=== PATIENT | female | born 1950 | race Caucasian/White ===

== ENCOUNTER 2020-05-06 12:53 | Outpatient (CLI) | payer MEDICARE, BC, SELFPAY ==
--- NOTE | 2020-05-06 13:04 | XR_ITS ---
WS: [id number] Exam: XR DEXA axial skeleton* [id number] Date/Time of Exam: 05/06/2020 1:04 PM Reason For Exam: OSTEOPOROSIS DEXA BONE DENSITOMETRY Looking for Gamers The L1-L4 bone mineral density measures 1.169 g/cm2. This corresponds to a T score of -0.1 and Z scor e of 1.3. Left femoral neck bone mineral density measures 0.939 g/cm2. This corresponds to T score of -0.5 and Z score of 0.6. Right femoral neck bone mineral density measures 0.991 g/cm2. This corresponds to a T score of -0.1 a nd Z score of 1.0. Mean femoral neck bone mineral density measures 0.965 g/cm2. This corresponds to a T score of -0.3 an d Z score of 0.8. XR/XR DEXA axial skeleton* 00300 IMPRESSION: Bone mineral density lies in the normal range. No osteopenia is observed at th is time. Refer to detailed summary.
== END 2020-05-06 12:54 | disposition home or self-care (01) ==
LOC: RADWPI 13:03
PROVIDERS: PCP Internal Medicine; Visit Provider Internal Medicine
DX: M81.0 Age-related osteoporosis without current pathological fracture (principal)
CPT/HCPCS: 77080

== ENCOUNTER 2024-03-12 12:02 | Outpatient (CLI) | payer MEDICARE, BC, SELFPAY ==
--- NOTE | 2024-03-12 12:07 | MM_ITS ---
WS: [id number] BILATERAL 3D TOMOSYNTHESIS DIGITAL SCREENING MAMMOGRAPHY WITH CAD CLINICAL INFORMATION: SCREENING HISTORY: Screening mammogram. No current complaints. COMPARISON: 2018 TECHNIQUE: Bilateral CC and MLO views. FINDINGS: The breasts are composed of heterogeneous fibroglandular density tissue, which can limit the detectio n of small underlying mass lesions. No suspicious mass, asymmetry, calcifications, or architectural d istortion. No evidence of malignancy. A few incidental punctate calcifications. MM/[place] [address] IMPRESSION: DENSITY:The breasts are heterogeneously dense, which may obscure small masses. BI-RADS: 2 - Benign FOLLOW UP: 1 Year Follow-up Recommend return to annual screening mammography.
== END 2024-03-12 12:03 | disposition home or self-care (01) ==
LOC: RAD 12:04
PROVIDERS: PCP Internal Medicine; Visit Provider Internal Medicine
DX: Z12.31 Encounter for screening mammogram for malignant neoplasm of breast (principal); R92.333 Mammographic heterogeneous density, bilateral breasts
CPT/HCPCS: 77063; 77067

== ENCOUNTER 2025-01-15 14:42 | Emergency (ER) | payer MEDICARE, BC, SELFPAY ==
--- OUTSIDE RECORDS SUMMARY | 2025-01-15 14:46 | XMS_ITS | Continuity of Care Document ---
Author Organization ANURAG Montano [facility] Tamika, LDorie, [facility] ([facility]) Address [address] [place] [address] Care Team Providers Care Senior Buyer Planner Name Role Phone ARTUR ROBERSON Primary Care Provider [phone] Assessment No assessment recorded. Plan of Treatment Reminders Order Date Submit Date Provider Last Modified By Organization Details Last Modified Time Details Appointments Roberson Transfer 2024 01:45P M Tod Bennett MD Not available Not available Not available Lab urinalysi s, dipstick 2024 025 [email or web address] [facility] ([facility]), [address] [place], [address], 01/14/2025 08:51:52 Referral None recorded. Procedures None recorded. Surgeries None recorded. Imaging None recorded. Medication Orders amoxicill in 875 mg-potass ium clavulana te 125 mg tablet 2024 025 [facility], [address], [address], 01/14/2025 08:51:38 tamsulosi n 0.4 mg capsule 2024 025 [facility], [address], [address], 01/14/2025 08:51:37 Patient TargetsNo targets recorded. Patient InstructionsNo instructions recorded. Reason for Referral None Reported. Results Created Date Observation Date Name Description Value Unit Range Abnormal Flag Note LastModifiedBy Organization Detail LastModifiedTime 01/15/2001/14/2025 urina lysis , dipst ick Leukocytes Small Not Available [facility] ([facility]) [address] [place], [address], 01/14/2025 08:33:36 01/15/20 25 01/14/2025 urina lysis , dipst ick Nitrite negati ve Not Available [facility] ([facility]) [address] [place], [address], 01/14/2025 08:33:36 01/15/2001/14/2025 urina lysis , dipst ick Urobilinogen 1 Not Available [facility] ([facility]) [address] [place], [address], 01/14/2025 08:33:36 01/15/20 25 01/14/2025 urina lysis , dipst ick Protein 30 Not Available [facility] ([facility]) [address] [place], [address], 01/14/2025 08:33:36 01/15/20 25 01/14/2025 urina lysis , dipst ick pH 6.0 Not Available [facility] ([facility]) [address] [place], [address], 01/14/2025 08:33:36 01/15/20 25 01/14/2025 urina lysis , dipst ick Blood Small Not Available [facility] ([facility]) [address] [place], [address], 01/14/2025 08:33:36 01/15/20 25 01/14/2025 urina lysis , dipst ick Specific [place] 1.030 Not Available [facility] ( [facility]) [address] [place], [address], 01/14/2025 08:33:36 01/15/20 25 01/14/2025 urina lysis , dipst ick Ketone Trace Not Available [facility] ([facility]) [address] [place], [address], 01/14/2025 08:33:36 01/15/20 25 01/14/2025 urina lysis , dipst ick Bilirubin Negati ve Not Available [facility] ([facility]) [address] [place], [address], 01/14/2025 08:33:36 01/15/2001/14/2025 urina lysis , dipst ick Glucose Negati ve Not Available [facility] ([facility]) [address] [place], [address], 01/14/2025 08:33:36 01/15/2001/14/2025 urina lysis , dipst ick Appearance Slight ly Cloudy Not Available [facility] ([facility]) [address] [place], [address], 01/14/2025 08:33:36 01/15/20 25 01/14/2025 urina lysis , dipst ick Color Yellow Not Available [facility] ([facility]) [address] [place], [address], 01/14/2025 08:33:36 Result Notes None recorded. Problems Name Problem SNOMED Code Status Onset Date Resolution Date Notes Provider Name and Address Organization Details Recorded Time Acute pharyngitis 791162687 Active 2023 Tod Bennett MD [address] [place], [address] , [facility] - [facility], LDorie 10:03:17 Hypothyroid ism 75667008 Active 2023 DIMITRIS malik, [facility], DelilahLKelleCKelle 4 09:23:40 Essential hypertensio n 42524537 Active 2023 DIMITRIS malik, [facility], James 4 09:23:46 History of polyp of colon 160847441 [facility] 10:25:37 Colonoscopy Active 2021 Colonosc opy; 1997-Dr. Ceballos 2003-[facility] 03/02/10 @ [facility] by Dr. Thompson ; 01/20/20 5:40PM by Delmer Dominguez, Office Visit; Promoted ; acuity set as *; Not Available [facility] 3 03:07:31 Cholecystec charlee Active 2021 Cholecys tectomy; 01/20/20 22 5:40PM by Delmer Dominguez, Office Visit; Promoted ; acuity set as *; Not Available [facility] 3 03:07:31 Polyp of colon 86347219 Active 2021 Colon Polyps; 1997 megha diaz; 01/20/20 22 5:40PM by Delmer Dominguez, Office Visit; Promoted ; acuity set as *; Not Available [facility] 3 03:07:31 Hysterectom y Active 2003 Hysterec charlee; Date: 01/20/20 22 5:40PM by Delmer Dominguez, Office Visit; Promoted ; acuity set as *; Not Available [facility] 3 03:07:32 Problem Notes None recorded. Procedures Surgical History Date Name Laterality Status Provider Name and Address Organization Details Recorded Time 05/20/20 Colonoscopy completed WILLIAM ROUSSEAU [facility], James 02/25/2024 10:05:50 [facility]24 13:47:43 [facility] ear [facility] 13:48:06 Imaging Results None recorded. Procedure Notes None recorded. Medical Equipment None Reported. Allergies Allergen ID Allergen Name Allergen Category Reaction Reaction Severity Criticality Documentation Date Start Date Code Code System Note Provider Name and Address Organization Details Recorded Time 04121 Floxin medicatio n Not available Not available Not available 02/03/202312271 8 RxNorm Comme nt: Recor ded 03/15 10:05 AM by There sa Hardwick Offic e Visit ; Promo clark; Signi anjel ce: *; Reaso n: Drug aller gy; ; Not Available [facility] 3 02:27:32 45251 Cipro medicatio n Not available Not available Not available 02/03/202344421 3 RxNorm Comme nt: Recor ded 03/15 10:05 AM by There sa Hardwick Offic e Visit ; Promo clark; Signi anjel ce: *; Reaso n: Drug aller gy; ; Not Available [facility] 3 02:27:32 24686 latex environme nt,medica tion Not available Not available Not available 03/21/2024 24582 91 RxNorm Susie malik [facility], LKelleLDana 4 13:45:18 Medications Name Sig Start Date Stop Date Status Note LastModified by Organization Details LastModified Time levothyro xine 137 mcg tablet TAKE 1 TABLET BY MOUTH ONCE DAILY 07/12 completed Not Available Not Available Not Available propranol ol ER 60 mg capsule,2 4 hr,extend ed release Take 1 capsule by mouth once daily 2024 active Not Available Not Available Not Avai lable tamsulosi n 0.4 mg capsule Take 1 capsule every day by oral route for 15 days. 2024 active Not Available Not Available Not Avai lable levothyro xine 125 mcg tablet Take 1 tablet every day by oral route. active Not Available Not Available No t Available hydrocort isone 2.5 % topical cream MIX EQUAL PARTS HYDROCOR TISONE AND KETOCONA ZOLE AND APPLY TO RASH ON FACE TWICE DAILY 01/14 completed Not Available Not Available Not Available ketoconaz ole 2 % topical cream MIX EQUAL AMOUNTS KETOCONA ZOLE AND HYROCORT ISONE CREAM AND APPLY TO RASH ON FACE TWICE DAILY 01/14 completed Not Available Not Available Not Available levothyro xine 112 mcg tablet TAKE 1 TABLET BY MOUTH ONCE DAILY (REPEAT TSH IN 7 WEEKS) 01/14 completed Not Available Not Available Not Available amoxicill in 875 mg-potass ium clavulana te 125 mg tablet Take 1 tablet every 12 hours by oral route for 7 days. 2024 active Not Available Not Available Not Avai lable Polytrim 4 times per day for 5 days 07/12 completed Recorded 03/15/20 10:24AM by Tod Bennett MD, Office Visit; Refill Quantity : 0; Not Available Not Available Not Available Vitamin C active Not Available Not Nadja ilable Not Available cyanocoba lee (vitamin B-12) 01/14 completed Not Available Not Available Not Available propranol ol daily 07/12 completed 59035; Recorded 06/26/20 9:02AM by Edie Hardwick (Authori zed through Tod Bennett MD), Refill Request; Mail Order Quantity : 7 Capsule; Refill Quantity : 90; Capsule; Not Available Not Available Not Available [facility] Levothyro xine Sodium daily 07/12 completed *dose increase * repeat in 7 weeks. CS/smf; 98464; Recorded 03/28/20 11:59AM by Cleopatra Turpin RN (Authori zed through Artur Roberson DO), Refill Request; Refill Quantity : 90; Capsule; Not Available Not Available Not Available Vitals Date Recorded Body height Body mass index (BMI) Body weight Oxygen saturation Oxygen saturation in Arterial blood by Pulse oximetry Heart rate Respiratory rate Body temperature Systolic And Diastolic Provider Name and Address Organization Details Last Updated DateTime 5 162.56 cm 28.8 kg/m2 04787.5 2 g 97 % 97 % 74 /min 16 /min 98.2 [degF] 130/88 mm[Hg] Tete Fountain [facility], .L.CKelle 08:08:45 Social History Question Answer Notes LastModified by Organizat ion Details LastModified Time Tobacco Smoking Status Never Smoker DIMITRIS PALOMA [facility] 02/25/2024 09:22:06 Are You Blind Or Do You Have Difficulty Seeing? No Information not available 02/25/2024 Are You Deaf Or Do You Have Serious Difficulty Hearing? No Information not available 02/25/2024 What Was The Date Of Your Most Recent Tobacco Screening? 01/14/2025 [email or web address] Information not available 01/14/2025 Has Tobacco Cessation Counseling Been Provided? No Information not available 02/25/2024 Do You Have Difficulty Walking Or Climbing Stairs? No Information not available 02/25/2024 Sex: Unknown Functional Status Question Answer Note LastModified by Organizat ion Details LastModified Time Do you use any illicit or recreational drugs? No [email or web address] Information not available 02/25/2024 Do you or have you ever used any other forms of tobacco or nicotine? No [email or web address] Information not available 02/25/2024 What is your level of alcohol consumption? None [email or web address] Information not available 02/25/2024 Are you able to walk? YESWOREST [email or web address] Information not available 02/25/2024 Do you have difficulty doing errands alone? No [email or web address] Information not available 02/25/2024 Are you able to care for yourself? Yes Information n ot available 02/25/2024 Do you have difficulty dressing or bathing? No [email or web address] Information not available 02/25/2024 Do you or have you ever used any nicotine-free cigarettes, vape, or chewing tobacco? No [email or web address] Information not available 02/25/2024 Mental Status Question Answer Note LastModified by Organization D etails LastModified Time Do you have difficulty concentrating, remembering or making decisions? No [email or web address] Information no t available 02/25/2024 Family History Nothing Reported. Medical History No medical history recorded. Gynecological HistoryNo gynecological history recorded. Obstetrics History GPAL:G 0 P 0 0 0 0 Immunizations Vaccine Type Date Status Note Provider Nam e and Address Organization Details Recorded Time Influenza, MDCK, quadrivalent, PF 7 completed Not Available [facility] 02/03/2023 02:43:29 Influenza, split virus, trivalent, preservative 2 completed Not Available [facility] 02/03/2023 02:43:29 Influenza, split virus, trivalent, preservative 2 completed Not Available [facility] 02/03/2023 02:43:29 COVID-19, mRNA, LNP-S, PF, 100 mcg/0.5mL dose or 50 mcg/0.25mL dose 1 completed Not Available [facility] 01/14/2025 08:04:19 COVID-19, mRNA, LNP-S, PF, 100 mcg/0.5mL dose or 50 mcg/0.25mL dose 1 completed Not Available [facility] 01/14/2025 08:04:19 COVID-19, mRNA, LNP-S, PF, 100 mcg/0.5mL dose or 50 mcg/0.25mL dose 1 completed Not Available [facility] 01/14/2025 08:04:19 Influenza, adjuvanted, quadrivalent, PF 3 completed Not Available [facility] 01/14/2025 08:04:19 COVID-19, mRNA, LNP-S, PF, 50 mcg/0.5 mL 3 completed Not Available [facility] 01/14/2025 08:04:19 Past Encounters Encounter ID Performer Location Encounter Start Date Encounter Closed Date Diagnosis/Indication Diagnosis SNOMED-CT Code Diagnosis ICD10 Code Diagnosis Note [id number] GERARD DA SILVA [facility] ([facility]) [address] [place] [address] 01/14/2025 08:03:47 01/14/2025 09:21:27 Abdominal pain 29048192 R10.9 Dysuria 71013542 R30.0 Patient will increase po intake. Monitor for any further nausea, flank pain that migrates to the front of abdomen. Will call with any new or worsening symptoms. Left flank pain 53301399 9 R10.9 Health Concerns Section Related Observation LastModified by Organization Bryan mejia LastModified Time None Recorded Concern Status LastModified by Organization Details LastModified Time None Recorded Payers Encounter Date Sequence Insurance Name Policy Number Policy Luna Covered Member ID Luna Member ID Guarantor Name 01/14/2025 2 [id number]LE[place] [id number] Bisi [place] [id number] Bisi Mata [place] 01/14/2025 1 [place] Bisi Mata [place] [id number] Bisi Adolfo [place] Notes Date Note Type Note Provider Name and Address Organization Details Recorded Time 01/14/2025 text/html walk in patientpatient is here today for left lower quadrant abdominal pain after having a bowel movement yesterday that never went away. Patient states that she has been constipated recently. Also states that she has possibly had a little pink with wiping with urination during the night. Patient states that she woke at 130 this am with left flank pain, moderate to severe, sharp with some nausea. Denies vomiting but states that she had try heaves. MAHI DOMINGUEZ, [employer] [address] [place], [address], [facility] 01/14/2025 08:51:49 OBGyn Episode No OBEpisode recorded.
--- OUTSIDE RECORDS SUMMARY | 2025-01-15 14:46 | XMS_ITS | Data Portability ---
Author Organization ANURAG Montano [facility], [facility], [facility] Address [address] [facility] [address] [place] [address] Care Team Providers Care Ink Blender Name Role Phone ROBERSON ARTUR Primary Care Provider [phone] Assessment No assessment recorded. Plan of Treatment Reminders Order Date Submit Date Provider Last Modified By Organization Details Last Modified Time Details Appointments Roberson Transfer 2024 01:45P Brenda Bennett MD Not available Not available Not available Lab urinalysi s, dipstick 2024 025 [email or web address] [facility] ([facility]), [address] [place], [address], 01/14/2025 08:51:52 SARS CoV 2 RNA, QL, nasophary nx 2023 024 [email or web address] [facility] ([facility]), [address] [place], [address], 03/21/2024 15:48:14 CMP, serum or plasma 2023 024 [facility], [address], [facility] 1, [place], [address], 02/25/2024 16:29:18 lipid panel, blood 2023 024 [facility], [address] [facility], [facility] 1, [place], [address], 02/25/2024 16:29:21 CBC 2023 024 MESA Cristino [facility], [address] [facility] [address], [address], 02/25/2024 12:44:05 TSH, serum or plasma 2023 024 [facility] ([facility]), [address] [place], [address], 02/25/2024 12:33:14 Referral gastroent erologist referral 2023 024 [email or web address] Not available 02/26/2024 10:22:36 Procedures None recorded. Surgeries None recorded. Imaging XR, kidney + ureter + bladder [address] ([facility]), [address] [place], [address], 02/26/2024 15:56:22 MAMMO, screening , digital, bilateral [address] [facility] Orders, [address] [place], [address], 03/03/2024 15:59:37 Medication Orders amoxicill in 875 mg-potass ium clavulana te 125 mg tablet 2024 025 [facility], [address], [place], [address], 01/14/2025 08:51:38 tamsulosi n 0.4 mg capsule 2024 025 [facility], [address], [place], [address], 01/14/2025 08:51:37 Patient TargetsNo targets recorded. Patient Instructions Encounter Date Encounter Id Patient Instructions Last Modified By Organization Details Last Modified Time 02/25/2024 [id number] gaining weight; had thyroid checked with endocrine other labs today due for colonoscopy with h/o polyps metal detector goes off around bladder; will get xray [email or web address] Not available 02/25/2024 10:01:53 Reason for Referral Medicare Compliance Auditor Referral for Screening for malignant neoplasm of colon Referring Physician: Artur Roberson, Internal Medicine, Encounter Date: 02/25/2024 Results Created Date Observation Date Name Description Value Unit Range Abnormal Flag Note LastModifiedBy Organization Detail LastModifiedTime 02/25/2002/25/2024 CBC WBC 8.7 x10 4.0-10 .5 Not Available [facility] [address] [facility] 1, [place], [address], 02/25/2024 12:44:05 02/25/2002/25/2024 CBC RBC 5.11 x10 3.50-5 .50 Not Available [facility] [address] [facility] 1, [place], [address], 02/25/2024 12:44:05 02/25/20 24 02/25/2024 CBC HGB 15.3 g/dL 12.0-1 6.0 Not Available [facility] [address] [facility] 1, [place], [address], 02/25/2024 12:44:05 02/25/20 24 02/25/2024 CBC HCT 45.1 % 37.0-4 7.0 Not Available [facility] [address] [facility] 1, [place], [address], 02/25/2024 12:44:05 02/25/20 24 02/25/2024 CBC MCV 88.2 fL 80.0-9 9.9 Not Available [facility] [address] [facility] 1, [place], [address], 02/25/2024 12:44:05 02/25/20 24 02/25/2024 CBC MCH 29.9 pg 27.0-3 2.0 Not Available [facility] [address] [facility] 1, [place], [address], 02/25/2024 12:44:05 02/25/20 24 02/25/2024 CBC MCHC 33.9 g/dL 32.0-3 6.0 Not Available [facility] [address] [facility], [place], [address], 02/25/2024 12:44:05 02/25/20 24 02/25/2024 CBC RDW 13.3 % 11.5-1 4.5 Not Available [facility] [address] [facility] 1, [place], [address], 02/25/2024 12:44:05 02/25/20 24 02/25/2024 CBC plt 277.7 x10 140.0- 451.0 Not Available [facility] [address] [facility], [place], [address], 02/25/2024 12:44:05 02/25/20 24 02/25/2024 CBC lymphocytes % 28.3 % 20.0-5 0.0 Not Available [facility] [address] [facility], [place], [address], 02/25/2024 12:44:05 02/25/20 24 02/25/2024 CBC granulcytes % 60.3 % 30.0-7 0.0 Not Available [facility] [address] [facility], [place], [address], 02/25/2024 12:44:05 02/25/20 24 02/25/2024 CBC monocytes % 8.9 % 2.0-16 .0 Not Available [facility] [place] [address] [facility], [place], [address], 02/25/2024 12:44:05 02/25/20 24 02/25/2024 CBC granulcytes# 5.2 x10 Not Nadja ilable [facility] [address] [facility] [address] [address], [place], [address], 02/25/2024 12:44:05 02/25/20 24 02/25/2024 CBC lymphocytes # 2.5 x10 Not Available [facility] [address] [address], [place], [address], 02/25/2024 12:44:05 02/25/20 24 02/25/2024 CBC monocytes # 0.8 x10 Not Avai lable [facility] [address] [address], [place], [address], 02/25/2024 12:44:05 02/25/20 24 02/25/2024 CMP (FEMA LE) glucose 102.0 mg/dL 60.0-9 9.0 high Not Available [facility] [address] [address], [place], [address], 02/25/2024 16:29:18 02/25/20 24 02/25/2024 CMP (FEMA LE) BUN (blood urea nitrogen) 20.0 mg/dL 10.0-2 6.0 Not Available [facility] [address] [address], [place], [address], 02/25/2024 16:29:18 02/25/20 24 02/25/2024 CMP (FEMA LE) creatinine (serum) 0.9 mg/dL 0.4-1. 5 Not Available [facility] [address] [facility] [address] [address], [place], [address], 02/25/2024 16:29:18 02/25/20 24 02/25/2024 CMP (FEMA LE) BUN/creatini ne ratio 23.53 ratio Not Available [facility] [address] [facility] 1, [place], [address], 02/25/2024 16:29:18 02/25/20 24 02/25/2024 CMP (FEMA LE) eGFR calculated 70.1 Not Available [facility] [address] [facility] 1, [place], [address], 02/25/2024 16:29:18 02/25/20 24 02/25/2024 CMP (FEMA LE) total protein 7.7 g/dL 6.0-8. 5 Not Available [facility] [address] [facility] 1, [place], [address], 02/25/2024 16:29:18 02/25/20 24 02/25/2024 CMP (FEMA LE) total bilirubin 0.7 mg/dL 0.2-1. 3 Not Available [facility] [address] [facility] 1, [place], [address], 02/25/2024 16:29:18 02/25/20 24 02/25/2024 CMP (FEMA LE) albumin 4.4 g/dL 3.5-5. 5 Not Available [facility] [address] [facility], [place], [address], 02/25/2024 16:29:18 02/25/20 24 02/25/2024 CMP (FEMA LE) globulin 3.[address] [facility] [address] [facility] 1, [place], [address], 02/25/2024 16:29:18 02/25/20 24 02/25/2024 CMP (FEMA LE) AST (SGOT) 28.0 U/L 0.0-46 .0 Not Available [facility] [address] [facility], [place], [address], 02/25/2024 16:29:18 02/25/20 24 02/25/2024 CMP (FEMA LE) altv (SGPT) 25.0 U/L 13.0-6 9.0 normal Not Available [facility] [address] [facility] 1, [place], [address], 02/25/2024 16:29:18 02/25/20 24 02/25/2024 CMP (FEMA LE) A/G ratio 1.3 ratio Not Available [facility] [address] [facility] 1, [place], [address], 02/25/2024 16:29:18 02/25/20 24 02/25/2024 CMP (FEMA LE) ALP phos 70.0 U/L 30.0-1 40.0 normal Not Available [facility] [address] [address], [place], [address], 02/25/2024 16:29:18 02/25/20 24 02/25/2024 CMP (FEMA LE) calcium 9.9 mg/dL 8.4-10 .5 Not Available [facility] [address] [address], [place], [address], 02/25/2024 16:29:18 02/25/20 24 02/25/2024 CMP (FEMA LE) sodium 141.0 mmol/ L 136.0- 145.0 Not Available [facility] [address] [address], [place], [address], 02/25/2024 16:29:18 02/25/20 24 02/25/2024 CMP (FEMA LE) potassium 4.3 mmol/ L 3.5-5. 1 Not Available [facility] [address] [address], [place], [address], 02/25/2024 16:29:18 02/25/20 24 02/25/2024 CMP (FEMA LE) chloride 108.0 mmol/ L 98.0-1 10.0 normal Not Available [facility] [address] [facility] 1, [place], [address], 02/25/2024 16:29:18 02/25/20 24 02/25/2024 CMP (FEMA LE) C02 28.0 mmol/ L 22.0-3 1.0 Not Available [facility] [address] [facility] 1, [place], [address], 02/25/2024 16:29:18 02/25/20 24 02/25/2024 CMP (FEMA LE) anion gap 5.[address] [facility] [address] [facility] 1, [place], [address], 02/25/2024 16:29:18 02/25/20 24 02/25/2024 CMP (FEMA LE) osmolality 293.8 calc Not Available [facility] [address] [facility] 1, [place], [address], 02/25/2024 16:29:18 02/25/20 24 02/25/2024 LIPID PROFI LE (FEMA LE) cholesterol 244.0 mg/dL 0.0-20 0.0 high Not Available [facility] [address] [address], [place], [address], 02/25/2024 16:29:20 02/25/20 24 02/25/2024 LIPID PROFI LE (FEMA LE) trig 212.0 mg/dL 0.0-15 0.0 high Not Available [facility] [address] [address], [place], [address], 02/25/2024 16:29:20 02/25/20 24 02/25/2024 LIPID PROFI LE (FEMA LE) HDL - direct 41.0 mg/dL >40.0 Not Available [facility] [address] [address], [place], [address], 02/25/2024 16:29:20 02/25/20 24 02/25/2024 LIPID PROFI LE (FEMA LE) VLDL - direct 42.4 mg/dL Not Available [facility] [address] [facility] 1, [place], [address], 02/25/2024 16:29:20 02/25/20 24 02/25/2024 LIPID PROFI LE (FEMA LE) LDL - direct 160.6 mg/dL 0.0-13 0.0 high Not Available [facility] [address] [facility] 1, [place], [address], 02/25/2024 16:29:20 02/25/20 24 02/25/2024 TSH, serum or plasm a TSH 0.22 uIU/m L 0.49-3 .82 low Not Available [facility] ([facility]) [address] [place], [address], 02/25/2024 09:52:12 03/21/20 24 03/21/2024 SARS CoV 2 RNA, QL, nasop haryn x COVID positi ve Not Available [facility] ([facility]) [address] [place], [address], 03/21/2024 13:55:14 01/15/20 25 01/14/2025 urina lysis , dipst ick Leukocytes Small Not Available [facility] ([facility]) [address] [place], [address], 01/14/2025 08:33:36 01/15/20 25 01/14/2025 urina lysis , dipst ick Nitrite negati ve Not Available [facility] ([facility]) [address] [place], [address], 01/14/2025 08:33:36 01/15/20 25 01/14/2025 urina lysis , dipst ick Urobilinogen 1 Not Available [facility] ([facility]) [address] [place], [address], 01/14/2025 08:33:36 01/15/20 25 01/14/2025 urina lysis , dipst ick Protein 30 Not Available [facility] ([facility]) [address] [place], [address], 01/14/2025 08:33:36 01/15/20 25 01/14/2025 urina lysis , dipst ick pH 6.0 Not Available [facility] ([facility]) [address] [place], [address], 01/14/2025 08:33:36 01/15/2001/14/2025 urina lysis , dipst ick Blood Small Not Available [facility] ([facility]) [address] [place], [address], 01/14/2025 08:33:36 01/15/2001/14/2025 urina lysis , dipst ick Specific [place] 1.030 Not Available [facility] ( [facility]) [address] [place], [address], 01/14/2025 08:33:36 01/15/2001/14/2025 urina lysis , dipst ick Ketone Trace Not Available [facility] ([facility]) [address] [place], [address], 01/14/2025 08:33:36 01/15/2001/14/2025 urina lysis , dipst ick Bilirubin Negati ve Not Available [facility] ([facility]) [address] [place], [address], 01/14/2025 08:33:36 01/15/20 25 01/14/2025 urina lysis , dipst ick Glucose Negati ve Not Available [facility] ([facility]) [address] [place], [address], 01/14/2025 08:33:36 01/15/20 25 01/14/2025 urina lysis , dipst ick Appearance Slight ly Cloudy Not Available [facility] ([facility]) [address] [place], [address], 01/14/2025 08:33:36 01/15/20 25 01/14/2025 urina lysis , dipst ick Color Yellow Not Available [facility] ([facility]) [address] [place], [address], 01/14/2025 08:33:36 02/27/20 24 02/25/2024 XR, kidne y + urete r + bladd er No observ ation record ed. [email or web address] [facility] [address] [place], [address], 03/13/2024 12:21:54 03/12/20 24 03/12/2024 MAMMO , scree dino, digit al, bilat eral No observ ation record ed. [address] [place], [address], 03/13/2024 12:21:43 Result Notes None recorded. Problems Name Problem SNOMED Code Status Onset Date Resolution Date Notes Provider Name and Address Organization Details Recorded Time Acute pharyngitis 041125727 Active 2023 Tod Bennett MD [address] [place] [address], [address] , [facility], James 10:03:17 Hypothyroid ism 12426260 Active 2023 DIMITRIS malik, [facility], James 4 09:23:40 Essential hypertensio n 52751772 Active 2023 DIMITRIS malik, [facility], James 4 09:23:46 History of polyp of colon 071951151 Active 2023 [facility] [place] 4 10:25:37 Colonoscopy Active 2021 Colonosc opy; 1997-Dr. Ceballos 2003-[facility] 03/02/10 @ [facility] by Dr. Thompson ; 01/20/20 5:40PM by Delmer Dominguez, Office Visit; Promoted ; acuity set as *; Not Available [facility] 3 03:07:31 Cholecystec charlee Active 2021 Cholecys tectomy; 01/20/20 22 5:40PM by Delmer Dominguez, Office Visit; Promoted ; acuity set as *; Not Available [facility] 3 03:07:31 Polyp of colon 22585866 Active 2021 Colon Polyps; 1997 megha diaz; 01/20/20 22 5:40PM by Delmer Dominguez, Office Visit; Promoted ; acuity set as *; Not Available [facility] 3 03:07:31 Hysterectom y Active 2003 Hysterec charlee; Date: 01/20/20 22 5:40PM by Delmer Dominguez, Office Visit; Promoted ; acuity set as *; Not Available [facility] 3 03:07:32 Problem Notes None recorded. Procedures Surgical History Date Name Laterality Status Provider Name and Address Organization Details Recorded Time 05/20/20 Colonoscopy completed WILLIAM ROSUSEAU [facility], [place] 02/25/2024 10:05:50 Hysterectomy [facility] 03/21/2024 13:47:43 procedure on ear completed [facility] 03/21/2024 13:48:06 Imaging Results None recorded. Procedure Notes None recorded. Medical Equipment None Reported. Allergies Allergen ID Allergen Name Allergen Category Reaction Reaction Severity Criticality Documentation Date Start Date Code Code System Note Provider Name and Address Organization Details Recorded Time 04230 Floxin medicatio n Not available Not available Not available 02/03/202343271 8 RxNorm Comme nt: Recor ded 03/15 10:05 AM by There sa Hardwick , Offic e Visit ; Promo clark; Maureen hobbs ce: *; Reaso n: Drug aller gy; ; Not Available [facility] 3 02:27:32 58448 Cipro medicatio n Not available Not available Not available 02/03/202312555 3 RxNorm Comme nt: Recor ded 03/15 10:05 AM by There sa Hradwick Offic e Visit ; Promo clark; Maureen hobbs ce: *; Reaso n: Drug aller gy; ; Not Available [facility] 3 02:27:32 42993 latex environme nt,medica tion Not available Not available Not available 03/21/2024 47396 91 RxNorm Susie malik [facility], [facility] 4 13:45:18 Medications Name Sig Start Date [...] Not Available propranol ol daily 07/12 completed 33189; Recorded 06/26/20 9:02AM by Edie Hardwick (Authori kated through Tod Bennett MD), Refill Request; Mail Order Quantity : 7 Capsule; Refill Quantity : 90; Capsule; Not Available Not Available Not Available [facility] Levothyro xine Sodium daily 07/12 completed *dose increase * repeat in 7 weeks. CS/smf; 10597; Recorded 03/28/20 11:59AM by Cleopatra Turpin RN (Authori joanna through Artur Roberson DO), Refill Request; Refill Quantity : 90; Capsule; Not Available Not Available Not Available Vitals Date Recorded Body weight Body mass index (BMI) Body height Body temperature Heart rate Oxygen saturation Oxygen saturation in Arterial blood by Pulse oximetry Respiratory rate Systolic And Diastolic Provider Name and Address Organization Details Last Updated DateTime 4 80867.1 g 29.4 kg/m2 162.56 cm 98.2 [degF] 69 /min 95 % 95 % 20 /min 128/76 mm[Hg] Pretty Alberto [facility], .[facility] 4 16:55:26 Date Recorded Body height Body mass index (BMI) Body weight Oxygen saturation Oxygen saturation in Arterial blood by Pulse oximetry Heart rate Respiratory rate Body temperature Systolic And Diastolic Provider Name and Address Organization Details Last Updated DateTime 5 162.56 cm 28.8 kg/m2 36222.5 2 g 97 % 97 % 74 /min 16 /min 98.2 [degF] 130/88 mm[Hg] Tete Fountain [facility] 5 08:08:45 Date Recorded Body height Body mass index (BMI) Body weight Respiratory rate Heart rate Oxygen saturation Oxygen saturation in Arterial blood by Pulse oximetry Systolic And Diastolic Provider Name and Address Organization Details Last Updated DateTime 4 162.56 cm 28.8 kg/m2 03563.5 2 g 16 /min 68 /min 91 % 91 % 138/80 mm[Hg] DIMITRIS TURPIN [facility] 4 09:20:25 Date Recorded Body height Body mass index (BMI) Body weight Oxygen saturation Oxygen saturation in Arterial blood by Pulse oximetry Heart rate Respiratory rate Body temperature Systolic And Diastolic Provider Name and Address Organization Details Last Updated DateTime 4 162.56 cm 28.6 kg/m2 94937.2 1 g 96 % 96 % 71 /min 18 /min 98.4 [degF] 112/74 mm[Hg] Susie Laureano [facility] 4 13:44:26 Social History Question Answer Notes LastModified by Organizat ion Details LastModified Time Tobacco Smoking Status Never Smoker DIMITRIS TURPIN [facility] 02/25/2024 09:22:06 Are You Blind Or Do You Have Difficulty Seeing? No [email or web address] Information not available 02/25/2024 Are You Deaf Or Do You Have Serious Difficulty Hearing? No Information not available 02/25/2024 What Was The Date Of Your Most Recent Tobacco Screening? 01/14/2025 [email or web address] Information not available 01/14/2025 Has Tobacco Cessation Counseling Been Provided? No [email or web address] Information not available 02/25/2024 Do You Have Difficulty Walking Or Climbing Stairs? No [email or web address] Information not available 02/25/2024 Sex: Unknown Functional Status Question Answer Note LastModified by Organizat ion Details LastModified Time Do you use any illicit or recreational drugs? No [email or web address] Information not available 02/25/2024 Do you or have you ever used any other forms of tobacco or nicotine? No [email or web address] Information not available 02/25/2024 What is your level of alcohol consumption? None [email or web address] Information not available 02/25/2024 Are you able to walk? YESWOREST [email or web address] Information not available 02/25/2024 Do you have difficulty doing errands alone? No [email or web address] Information not available 02/25/2024 Are you able to care for yourself? Yes [email or web address] Information n ot available 02/25/2024 Do you have difficulty dressing or bathing? No [email or web address] Information not available 02/25/2024 Do you or have you ever used any nicotine-free cigarettes, vape, or chewing tobacco? No Information not available 02/25/2024 Mental Status Question Answer Note LastModified by Organization D etails LastModified Time Do you have difficulty concentrating, remembering or making decisions? No [email or web address] Information no t available 02/25/2024 Family History Nothing Reported. Medical History No medical history recorded. Gynecological HistoryNo gynecological history recorded. Obstetrics History GPAL:G 0 P 0 0 0 0 Immunizations Vaccine Type Date Status Note Provider Nam e and Address Organization Details Recorded Time Influenza, MDCK, quadrivalent, PF 7 completed Not Available [facility] 02/03/2023 02:43:29 Influenza, split virus, trivalent, preservative 2 completed Not Available [facility] 02/03/2023 02:43:29 Influenza, split virus, trivalent, preservative 2 completed Not Available [facility] 02/03/2023 02:43:29 COVID-19, mRNA, LNP-S, PF, 100 mcg/0.5mL dose or 50 mcg/0.25mL dose 1 completed Not Available [facility] 01/14/2025 08:04:19 COVID-19, mRNA, LNP-S, PF, 100 mcg/0.5mL dose or 50 mcg/0.25mL dose 1 completed Not Available [facility] 01/14/2025 08:04:19 COVID-19, mRNA, LNP-S, PF, 100 mcg/0.5mL dose or 50 mcg/0.25mL dose 1 completed Not Available [facility] 01/14/2025 08:04:19 Influenza, adjuvanted, quadrivalent, PF 3 completed Not Available [facility] 01/14/2025 08:04:19 COVID-19, mRNA, LNP-S, PF, 50 mcg/0.5 mL 3 completed Not Available [facility] 01/14/2025 08:04:19 Past Encounters Encounter ID Performer Location Encounter Start Date Encounter Closed Date Diagnosis/Indication Diagnosis SNOMED-CT Code Diagnosis ICD10 Code Diagnosis Note [id number] Tod Bennett MD [facility] ([facility]) [address] [place] [phone] 07/12/2023 16:27:32 07/14/2023 21:48:45 Acute pharyngitis 471536409 J02.9 Likely viral discussed the possibilit y of COVID and the patient states that she will do a home test. Would like to start Paxlovid if she was positive so she will call the clinic with results. Chan continue supportive care include plenty of fluids and over-the-c ounter medication to help with symptoms. Follow-up if symptoms do not improve over the next 7 to 10 days. [id number] Artur Roberson DO [facility] ([facility]) [address] [place] [phone] 02/25/2024 09:11:03 02/25/2024 10:30:32 Adult health examination 279637779 Z00.00 Hypothyroidism 63747926 E03.9 Essential hypertension 14845752 I10 Screening for malignant neoplasm of colon 020166562 Z12.11 Screening for malignant neoplasm of breast 344237558 Z12.39 Abdominal pain 61023255 R10.9 [id number] GERARD ZELAYA [facility] ([facility]) [address] [place] [id number] 03/21/2024 13:34:00 03/21/2024 14:21:22 Cough 72494671 R05.9 COVID-19 231192153 U07.1 Pt is covid positive here in the office today.I counseled the patient on diagnosis, treatment options, medication s, and expectatio ns. All questions were addressed. Neela mossPt is to stay home until no fever for 24 hours and then mask in public for an additional 5 days.They were instructed to call the office or come in for Follow Up with any questions, concerns, or worsening problems. [id number] GERARD DA SILVA [facility] ([facility]) [address] [place] [address] 01/14/2025 08:03:47 01/14/2025 09:21:27 Abdominal pain [id number] R10.9 Dysuria [id number] R30.0 Patient will increase po intake. Monitor for any further nausea, flank pain that migrates to the front of abdomen. Will call with any new or worsening symptoms. Left flank pain [id number] R10.9 Health Concerns Section Related Observation LastModified by Organization Detai ls LastModified Time None Recorded Concern Status LastModified by Organization Details LastModified Time None Recorded Advance Directives Directive None Recorded Payers Insurance Date Sequence Insurance Name Policy Number Policy Luna Covered Member ID Luna Member ID Guarantor Name 01/14/2025 2 [place]ARE [place]) [id number] Bisi Adolfo Steuben [id number] Bisi Adolfo Steuben 01/14/2025 1 [place] Bsii Adolfo Steuben [id number] Bisi Adolfo Steuben 01/14/2025 [place] - [facility] (MEDICARE) Bisi D Dejan [id number] Bisi Adolfo Steuben Notes Date Note Type Note Provider Name and Address Organization Details Recorded Time 07/12/2023 text/html Sore ThroatRepor clark bypatient.Location:mid line Onset/Timing:date of onset 07/11/23 Duration:started 1 day(s) ago Quality:pressure Severity:worsening Context:no recent travel; no tick/insect bites; no one else with similar symptoms; allergies Associated Symptoms:no cough; no nausea; no vomiting;fever;swollen glands Tod Bennett MD [address] [place], [address], [facility], Kathy. 07/13/2023 10:04:01 02/25/2024 text/html Annual WellnessReported bypatient.Diet and Nutrition:healthy diet Fracture Risk:no history of fractures; no recent explained fracture Physical Activity:does not exercise on a regular basis Additional Lifestyle Factors:no tobacco use; no alcohol intake Depression Risk:never feels sad, empty, or tearful Artur Roberson DO [address] [place] [address], [phone], [facility], Kathy. 02/25/2024 10:02:06 03/21/2024 text/html Upper Respirator y SymptomsReported bypatient.Location:a d; nasal Quality:hacking cough Associated Symptoms:fatigue;fever ;sore throat;headache;chills walk in patientPatient reports starting to have sinus drainage 4 days ago. with a cough that worsens at night, fatigue, abdi, and sore throat. is drinking fluids well. decreased appetite. KAITLYNN CHEN, DERRICK FOLLOWER [address] [place] [address], [phone], [facility], LKelleLCornelius. 03/22/2024 10:35:36 01/14/2025 text/html walk in patientp atient is here today for left lower quadrant [...] that she had try heaves. MAHI DOMINGUEZ, [facility] [place], [address], [facility], Kathy. 01/14/2025 08:51:49 OBGyn Episode No OBEpisode recorded.
--- OUTSIDE RECORDS SUMMARY | 2025-01-15 14:46 | XMS_ITS | Clinical Summary ---
Author Organization [facility] Address [address] [facility] Attn: [place] [address] Care Team Providers Care Urologist Md Name Role Phone Licha Joe MD, David Butler Primary Care Provider Allergies Active Allergy Reactions Criticality Noted Date Comments Ofloxacin Unknown 03/27/2022 Protein C Concentrate, Human Anxiety Low 018 Medications levothyroxine 125 mcg tablet Take 125 mcg by mouth daily in the morning. Active propranoloL (INDERAL) 60 mg Tablet Take 60 mg by mouth every 8 hours. Active prednisoLONE acetate (PRED FORTE) 1 % suspension Administer 1 Drop in right eye 3 times daily. 15 mL 2 2 Active polymyxin B sulf-trimethopr im (POLYTRIM) 10,000 unit- 1 mg/mL solution Administer 1 Drop in right eye 3 times daily. 10 mL 1 2 Active levothyroxine 88 mcg tablet 8 Active olopatadine (PATANOL) 0.1 % solution 8 Active propranoloL (INDERAL LA) 60 mg Long Acting 24 hour capsule 8 Active Active Problems Problem Noted Date Diagnosed Date Hypothyroidism 03/27/2022 HTN (hypertension), benign 03/27/2022 Symptomatic posterior vitreous detachment of lef t eye 12/14/2017 Combined form of senile cataract of both eyes Social History Tobacco Use Types Packs/Day Years Used Date Smoking Tobacco: Never Smokeless Tobacco: Never Alcohol Use Standard Drinks/Week Comments No 0 (1 standard drink = 0.6 oz pur e alcohol) Comments Unknown Sex and Gender Information Value Date Recorded Sex Assigned at Not on file 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 Gender Identity Not on file Sexual Orientation Not on file Last Filed Vital Signs Vital Sign Reading Time Taken Comments Blood Pressure 139/79 12/14/2017 1:40 PM CDT Pulse - - Temperature - - Respiratory Rate - - Oxygen Saturation - - Inhaled Oxygen Concentration - - Weight 64.4 kg (142 lb) 12/14/2017 1:40 PM CDT Height 162.6 cm (5' 4 ) 12/14/2017 1:40 PM CDT Body Mass Index 24.37 12/14/2017 1:40 PM CDT Plan of Treatment Health Maintenance Due Date Last Done Comments DTAP/TDAP/TD VACCINES (1 - Tdap) 1971 BREAST CANCER SCREENING 1992 COLORECTAL SCREENING 1997 Colorectal Cancer Screening 1997 FIT-DNA Q 3 years 1997 FIT/FOBT Q 1 year 1997 Flex Sig/CT Colonography Q 5 years 1997 PNEUMOCOCCAL VACCINE 50+ YEARS (1 of 1 - PCV) 07/09/19 03 ZOSTER VACCINE (1 of 2) 2002 OSTEOPOROSIS SCREENING 2017 01/16/2007 INFLUENZA VACCINE (#1) 2025 RSV VACCINE (60+ or ) (1 - 1-dose 75+ series) 2027 Insurance [facility] SUPP MEDICARE PART A AND B Care Teams Urologist Md Relationship Specialty Start Date End Date David Hurt Jr., MD [address] [id number] PCP - General 01/04/04
[2025-01-15 14:48] VITALS: BP 137/80; PULSE 76; RESP 18; TEMP 36.6; O2SAT 97; BMI 28.6
[2025-01-15 15:34] LABS: Glucose Urine UA Negative (Normal); Nitrate Urine Negative (Negative); Specific Gravity, Urine 1.026 (1.005-1.030)
[2025-01-15 15:39] LABS: Add Urine Microscopic? YES
--- NOTE | 2025-01-15 16:16 | CTR_ITS ---
PROCEDURE INFORMATION: Exam: CT Abdomen And Pelvis Without Contrast Exam date and time: 01/15/2025 4:59 PM Age: 74 years old Clinical indication: Abdominal pain; Flank; Left; Prior surgery; Surgery date: 6+ months; Surgery type: Gb, hysterectomy; Additional info: Flank pain TECHNIQUE: Imaging protocol: Computed tomography of the abdomen and pelvis without contrast. Radiation optimization: All CT scans at this facility use at least one of these dose optimization techniques: automated exposure control; mA and/or kV adjustment per patient size (includes targeted exams where dose is matched to clinical indication); or iterative reconstruction. COMPARISON: CR XR KUB [id number] 02/25/2024 9:34 AM RADIATION DOSE METRICS: Total DLP (mGy-cm): 651.8 FINDINGS: Lungs: Mild basilar atelectasis and/or scarring. Heart: Heart size is within normal limits. There is no pericardial effusion or pericardial thickening. Liver: There is diffuse decreased attenuation of the hepatic parenchyma consistent with fatty infiltration. The liver is otherwise normal. There are no hepatic masses identified. Gallbladder and biliary ducts: The gallbladder is surgically absent. There is no ductal dilatation. Pancreas: The pancreas is normal. Spleen: The spleen is normal. Adrenal glands: The adrenal glands are normal. Kidneys and ureters: No renal calcifications. No hydronephrosis on the right. 8 mm proximal left ureteral calcification causing moderate left hydroureteronephrosis and perinephric changes. Multiple bilateral renal lesions not well assessed on noncontrast imaging. Stomach and bowel: Moderate colonic diverticulosis without diverticulitis. There is no large or small bowel obstruction. There is no evidence of bowel wall thickening. Appendix: A normal appendix is identified. Intraperitoneal space: No inflammatory changes are identified. There is no free fluid or fluid collection seen. There is no pneumoperitoneum. Vasculature: Atherosclerotic calcifications of the aorta are present. No aneurysm is identified. Lymph nodes: No enlarged lymph nodes are identified. Urinary bladder: The bladder is unremarkable. Reproductive: The uterus is absent. Bones/joints: No acute osseous abnormalities are seen. Soft tissues: Tiny periumbilical hernia containing only fat. CT/CT abdomen pelvis wo con [id number] IMPRESSION: 1. 8 mm proximal left ureteral calcification causing moderate left hydroureteronephrosis and perinephric changes. 2. Other nonemergent findings above. COMMENTS: Consistent with the [place] [employer]'s Incidental Findings Committee white paper (J Am Negrita Radiol 2018): Any incidental renal lesion less than 1 cm or classified as too small to characterize, or any incidental cystic renal lesion characterized as simple-appearing, is likely benign. No follow-up imaging is recommended for these lesions per consensus recommendations based on imaging criteria.
--- NOTE | 2025-01-15 16:27 | W.ED.BACK ---
HPI - Back Pain/Injury General: Chief Complaint: Back Pain/Injury Stated Complaint: low back pain/kidney pain Time Seen by Provider: 01/15/25 16:15 History of Present Illness: Patient is a 74-year-old female that reports to ED with complaints of flank pain, dysuria symptoms. This is occurred for the last 2 days. She has some nausea, and emesis yesterday, however just nausea today. No history of urolithiasis/renal colic. Family history of renal colic. No new sexual partners. Associated symptoms: Reports abdominal pain, nausea and vomiting; Deny chills or fever(s) Related Data Previous Rx's ?Medication ?Instructions ?Recorded cefdinir 300 mg capsule 300 mg PO BID 10 days #20 caps 01/15/25 cephalexin 500 mg capsule 500 mg PO BID 10 days #20 caps 01/15/25 hydrocodone 5 mg-acetaminophen 325 1 tab PO Q6H PRN pain #20 tabs 01/15/25 mg tablet ondansetron 4 mg disintegrating 4 mg PO Q8H PRN nausea and 01/15/25 tablet vomiting #10 tabs ondansetron 4 mg disintegrating 4 mg PO Q8H PRN nausea and 01/15/25 tablet vomiting 4 days #14 tabs tamsulosin 0.4 mg capsule (Flomax) 0.4 mg PO DAILY #30 caps 01/15/25 Allergies Allergy/AdvReac Type Severity Reaction Status Date / Time ciprofloxacin (From Cipro) Allergy Unknown Verified 01/15/25 17:05 latex Allergy Unknown Verified 01/15/25 17:05 Review of Systems Const: Denies: fever(s), chills or change in weight ENMT: Denies: throat pain or nasal congestion Card: Denies: chest pain or palpitations Resp: Denies: dyspnea or productive cough GI: Reports: abdominal pain, nausea and vomiting; Denies: change in stool character : Denies: flank pain or difficulty voiding Musc: Denies: neck pain or back pain Skin/Breast: Denies: rash or pruritus Neuro: Denies: headache(s) or numbness in extremities Endo: Denies: polyuria or polydipsia Physical Exam Const: COMMON NORMALS: no acute distress, average body habitus and patient oriented x3 HENMT: COMMON NORMALS: normocephalic and atraumatic HEAD & SCALP: normocephalic and atraumatic Lymph: LYMPHATIC: no lymphadenopathy noted Resp: COMMON NORMALS: normal respiratory effort and No retractions Cardio: COMMON NORMALS: regular rate and regular rhythm RATE: regular rate RHYTHM: regular rhythm GI: AUSCULTATION: Yes normoactive bowel sounds PALPATION: Yes Tenderness to palpation present (GI) : BLADDER/KIDNEY EXAM: Yes CVA tenderness on the left Back/Pelvis: GENERAL BACK: Yes CVA tenderness Extremity: COMMON NORMALS: normal to inspection, full ROM and capillary refill normal Neuro: COMMON NORMALS: patient oriented x3 Psych: COMMON NORMALS: mental status grossly normal and Normal thought process present THOUGHT PROCESS: Normal thought process present Skin: COMMON NORMALS: no rashes or lesions noted GENERAL SKIN EXAM: no rashes or lesions noted Course Reevaluation(s): Reevaluation #1: Patient improved after Toradol Consultations: Consultation #1: Dr. Mendes d/w Dr. Delbert Martinez in [place], his STYRENE DEHYDRATION REACTOR OPERATOR will see tomorrow in clinic to set up possible lithotripsy. Vital Signs: Vital signs: Vital Signs Temperature 97.9 F 01/15/25 14:48 Pulse Rate 68 01/15/25 17:08 Respiratory Rate 18 01/15/25 14:48 Blood Pressure 157/78 01/15/25 17:08 Pulse Oximetry 95 01/15/25 17:08 Oxygen Delivery Me thod Room Air 01/15/25 17:08 MDM - Back Pain/Injury Medical Decision Making Patient is 74-year-old female treated for UTI yesterday by primary care, on unknown antibiotic, presents with ongoing left flank pain, nausea, with nausea and vomiting yesterday. She has an 8 mm stone with moderate hydronephrosis and notable cystic changes that can be checked on later time, considered incidental. Patient be treated for urolithiasis, and appropriate antibiotic coverage. Discussed the case with Delbert Quintana, his STYRENE DEHYDRATION REACTOR OPERATOR will discuss/see patient tomorrow, and set up for next week. Pain coverage/antibiotics given to patient. Medical Records I reviewed the patient's medical records. Labs I reviewed the patient's lab results. 01/15/25 16:45 01/15/25 16:45 Radiology Impressions Abdomen/Pelvis CT 01/15/25 16:16 IMPRESSION: 1. 8 mm proximal left ureteral calcification causing moderate left hydroureteronephrosis and perinephric changes. 2. Other nonemergent findings above. COMMENTS: Consistent with the [place] [employer]'s Incidental Findings Committee white paper (J Am Negrita Radiol 2018): Any incidental renal lesion less than 1 cm or classified as too small to characterize, or any incidental cystic renal lesion characterized as simple-appearing, is likely benign. No follow-up imaging is recommended for these lesions per consensus recommendations based on imaging criteria. Laboratory Results WBC 17.59 10^3/uL (3.29-11.43) H 01/15/25 16:45 RBC 4.81 10^6/uL (3.85-5.65) 01/15/25 16:45 Hgb 14.00 g/dL (11.27-16.99) 01/15/25 16:45 Hct 43.8 % (36-47) 01/15/25 16:45 MCV 91.1 fl (85-98) 01/15/25 16:45 MCH 29.1 pg (27-33) 01/15/25 16:45 MCHC 32.0 g/dL (30-55) 01/15/25 16:45 RDW 12.2 % (12.1-15.1) 01/15/25 16:45 Plt Count 228 10^3/cmm (157-399) 01/15/25 16:45 MPV 9.8 fL (7.4-10.4) 01/15/25 16:45 Neut % (Auto) 82.7 % 01/15/25 16:45 Lymph % (Auto) 8.6 % 01/15/25 16:45 Hood % (Auto) 7.4 % 01/15/25 16:45 Eos % (Auto) 0.1 % 01/15/25 16:45 Baso % (Auto) 0.3 % 01/15/25 16:45 Neut # (Auto) 14.57 10^3/uL (1.8-7.7) H 01/15/25 16:45 Lymph # (Auto) 1.5 10^3/uL (0.8-4.8) 01/15/25 16:45 Hood # (Auto) 1.3 10^3/uL (0.2-0.9) H 01/15/25 16:45 Eos # (Auto) 0.0 10^3/uL (0.0-0.8) 01/15/25 16:45 Baso # (Auto) 0.1 10^3/uL (0.0-0.1) 01/15/25 16:45 Nucleated RBC % (auto) 0 % 01/15/25 16:45 Nucleated RBCs # 0.0 /100WBC 01/15/25 16:45 Sodium 136 mmol/L (136-145) 01/15/25 16:45 Potassium 4.5 mmol/L (3.5-5.1) 01/15/25 16:45 Chloride 100 mmol/L (98-107) 01/15/25 16:45 Carbon Dioxide 20 mmol/L (22-29) L 01/15/25 16:45 Anion Gap 20.5 (5-19) H 01/15/25 16:45 BUN 23 mg/dL (8-23) 01/15/25 16:45 Creatinine 1.2 mg/dL (0.5-0.9) H 01/15/25 16:45 GFR Calculation Not Reportable 01/15/25 16:45 Glucose 111 mg/dL (65-115) 01/15/25 16:45 Calculated Osmolality 286 mOsm/kg (285-295) 01/15/25 16:45 Calcium 9.3 mg/dL (8.5-10.5) 01/15/25 16:45 Total Bilirubin 1.0 mg/dL (0.15-1.2) 01/15/25 16:45 AST 20 U/L (0-32) 01/15/25 16:45 ALT 15 U/L (0-33) 01/15/25 16:45 Alkaline Phosphatase 68 U/L (35-105) 01/15/25 16:45 Total Protein 7.3 g/dL (6.6-8.7) 01/15/25 16:45 Albumin 3.9 g/dL (3.5-5.2) 01/15/25 16:45 Globulin 3.4 g/dL (1.3-4.6) 01/15/25 16:45 Urine Color Yellow (Yellow) 01/15/25 15:17 Urine Appearance Cloudy (CLEAR) A 01/15/25 15:17 Urine pH 5.5 (5-7) 01/15/25 15:17 Ur Specific [place] 1.026 (1.005-1.030) 01/15/25 15:17 Urine Protein 1+ (Negative) A 01/15/25 15:17 Urine Glucose (UA) Negative (Normal) 01/15/25 15:17 Urine Ketones 1+ (Negative) H 01/15/25 15:17 Urine Blood 2+ (Negative) A 01/15/25 15:17 Urine Nitrate Negative (Negative) 01/15/25 15:17 Urine Bilirubin Negative (Negative) 01/15/25 15:17 Urine Urobilinogen 1.0 mg/dL (Negative) 01/15/25 15:17 Ur Leukocyte Esterase 1+ (Negative) A 01/15/25 15:17 Urine RBC 21-50 /hpf (0-2) H 01/15/25 15:17 Urine WBC 21-50 /hpf (0-5) H 01/15/25 15:17 Ur Squamous Epith Cells 21-50 /hpf (0-5) H 01/15/25 15:17 Amorphous Sediment Not Reportable 01/15/25 15:17 Urine Bacteria None seen /hpf (NONE) 01/15/25 15:17 Hyaline Casts 1.65 /lpf 01/15/25 15:17 All radiology interpretation(s) finalized by discharge ED provider radiology interpretation(s): 8 mm stone Discharge Plan Discharge Patient Disposition: Home Clinical Impression: Ureterolithiasis, Pyuria Condition: Stable Prescriptions: New hydrocodone-acetaminophen 5-325 mg tablet 1 tab PO Q6H PRN (Reason: pain) Qty: 20 0RF tamsulosin [Flomax] 0.4 mg capsule 0.4 mg PO DAILY Qty: 30 0RF cephalexin 500 mg capsule 500 mg PO BID 10 Days Qty: 20 0RF ondansetron 4 mg tablet,disintegrating 4 mg PO Q8H PRN (Reason: nausea and vomiting) Qty: 10 0RF cefdinir 300 mg capsule 300 mg PO BID 10 Days Qty: 20 0RF ondansetron 4 mg tablet,disintegrating 4 mg PO Q8H PRN (Reason: nausea and vomiting) 4 Days Qty: 14 0RF Discharge Orders: Discharge ED (Routine); Ordered 01/15/25 Ordered By: Viridiana Vee Referrals: Delbert Martinez [Referring, Urology] Referral Note: If you do not hear from Dr. Martinez's clinic early tomorrow morning then call the clinic for an appointment. They should be able to see you tomorrow Artur Roberson DO [Primary Care Provider, Internal Medicine] Discharge Diet: Usual diet Discharge Activity: Resume usual activity Patient Instructions: Patient Portal & Slick Instructions Activity Restrictions/Additional Instructions: Increase fluid intake If you have more issues with nausea, and vomiting, reduce your diet to clear liquids until this resolves Return to ED with worsening symptoms Call for appointment with urology. If fever (temp >100.4) develops return to the emergency room immediately, as this is an emergency. Take nausea medication prior to taking pain medications. Thank you for choosing [facility] for your healthcare needs today. You have been screened and evaluated and felt safe for discharge. Health conditions do change or evolve sometimes and as such it is important that you follow up with your Primary Doctor to be re checked, 3-5 days is a general good time frame for follow up. You are always welcome to return to the ED for re assessment if your symptoms are worsening or you have new concerns Print Language: Congolese Coding Level of Care Code ED Commanding Officer [employer] for Kenna Chin
[2025-01-15 17:01] LABS: Hematocrit 43.8 % (36-47); Hemoglobin 14.00 g/dL (11.27-16.99); Mean Corpuscular HGB Conc 32.0 g/dL (30-55); Mean Corpuscular Hemoglobin 29.1 pg (27-33); Mean Corpuscular Volume 91.1 fl (85-98); Nucleated Red Blood Cells % 0 %; Platelet Count 228 10^3/cmm (157-399); Red Blood Count 4.81 10^6/uL (3.85-5.65); White Blood Count 17.59 10^3/uL (3.29-11.43)
[2025-01-15] MEDS: ondansetron 2 mg/ML SDV 2 mL 4 MG IVP (17:05)
[2025-01-15 17:08] VITALS: BP 157/78; PULSE 68; O2SAT 95
[2025-01-15 17:22] LABS: Alanine Aminotransferase 15 U/L (0-33); Albumin Level 3.9 g/dL (3.5-5.2); Alkaline Phosphatase 68 U/L (35-105); Anion Gap 20.5 (5-19); Aspartate Amino Transferase 20 U/L (0-32); Blood Urea Nitrogen 23 mg/dL (8-23); Calcium 9.3 mg/dL (8.5-10.5); Carbon Dioxide 20 mmol/L (22-29); Chloride 100 mmol/L (98-107); Creatinine Clr Calc Pharmacy 42.2261; Globulin 3.4 g/dL (1.3-4.6); Glucose 111 mg/dL (65-115); Osmolality Calculated 286 mOsm/kg (285-295); Potassium 4.5 mmol/L (3.5-5.1); Sodium 136 mmol/L (136-145); Total Protein 7.3 g/dL (6.6-8.7)
[2025-01-15] MEDS: cefTRIAXone 1,000 mg SDV 1000 MG IVP (18:18)
[2025-01-15] MEDS: HYDROcodone-acetaminophen 10-325 mg Tablet 1 TAB PO (19:38)
[2025-01-15 21:41] VITALS: BP 133/67; PULSE 64; O2SAT 96
== END 2025-01-15 19:53 | disposition home or self-care (01) ==
PROVIDERS: Family Medicine; Emergency Provider Physician Assistant; PCP Internal Medicine
DX: N20.1 Calculus of ureter (principal); R82.81 Pyuria
CPT/HCPCS: 36415; 74176; 80053; 81001; 85025; 87086; 96374; 96375; 99285; J0696; J1885; J2405; J9999